=== PATIENT | male | born 1960 | race Caucasian/White ===

== ENCOUNTER 2024-10-16 12:42 | Outpatient (AMB) | payer MEDICARE, MEDICAID, SELFPAY ==
[2024-10-16 12:47] VITALS: BP 140/68; PULSE 63; BMI 29.4
--- NOTE | 2024-10-16 12:47 | MHC.OFFVIS ---
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 The patient reports experiencing chest pain and shortness of breath, which occur primarily when climbing stairs or walking at a fast pace. He describes the chest pain as a tightness and notes that it is sometimes accompanied by dizziness. The symptoms began during an exercise session in the [place], where he was hospitalized and informed of a possible blockage. The patient has not had a stent placed and is seeking treatment in the current location. He mentions that the pain is alleviated by medication, although the specific medication is not detailed in the conversation. [facility] Medical History (Updated 10/16/24 @ 13:11 by Duke Toure MD) Primary hypertension Atherosclerotic cardiovascular disease Family History (Updated 10/16/24 @ 12:59 by Etelvina Milton) Mother Heart problem Father Heart problem Brother H/O heart surgery Social History (Updated 10/16/24 @ 12:59 by Etelvina Milton) Alcohol intake: current Alcohol intake frequency: holidays/special occasions only Patient Tobacco Use Status: Never used Tobacco Review of Systems Const Reports headache(s) and Denies weakness Eyes Reports blurry vision ENT Denies dizziness and Reports headache(s) Card Reports chest pain, Reports chest pain with activity, Denies syncope, Denies rapid heart rate, Denies pedal edema, Denies edema, Denies leg edema, Denies lightheadedness, Denies palpitations, Reports dyspnea, Reports dyspnea on exertion and Denies orthopnea Resp Denies cough, Reports dyspnea and Reports dyspnea on exertion GI Denies hematochezia and Denies change in stool character Musc Denies abnormal gait, Denies muscle cramps, Denies muscle weakness, Denies numbness, Denies radiating pain into limb and Denies tingling Neuro Denies abnormal gait, Denies dizziness, Denies syncope, Reports headache(s), Denies numbness, Denies tingling and Denies weakness Endo Denies palpitations Physical Exam Vital Signs: Last Vital Signs Pulse 63 10/16/24 12:47 BP 140/68 H 10/16/24 12:47 BMI result Body Mass Index 29.4 Const General: comfortable and no acute distress Orientation/consciousness: patient oriented x3 HEENT Other: Unremarkable Head: Yes normal to inspection Neck Neck: Yes normal visual inspection Chest Chest palpation & inspection: normal inspection of the chest Resp Auscultation: clear to auscultation bilaterally Cardio Palpation: normal PMI Heart sounds: S1 normal heart sound present, S2 normal heart sound present, no gallops, no murmurs and no rubs GI Palpation (GI): Soft to palpation Back/Spine/Pelvis Other: unremarkable Skin General skin exam: no rashes or lesions noted Neuro General: patient oriented x3 Extrem General: Yes normal to inspection Psych Mental Status: mental status grossly normal Office Procedures EKG Details: EKG with sinus rhythm at 63/Min; old inferior infarct; cannot exclude old lateral infarct; [place]. [address]-[id number], Complete Assessment & Plan Assessment & Plan (1) Atherosclerotic cardiovascular disease: Code(s): I25.10 - Atherosclerotic heart disease of [place] coronary artery without angina pectoris Category: Medical Plan: Per PCP note, coronary CTA results-performed in the [place]jh-09-92% stenosis in the LAD; < 49% stenosis in the circumflex. We can contact the PCP to get the actual CTA results. He is describing exertional anginal-type symptoms with LAD stenosis as above. Hence we will schedule him for cardiac catheterization and LAD intervention. Next available date is in December but we will try to expedite as much able. We discussed about this today and patient is agreeable. Advised to limit physical activity to avoid anginal symptoms. He is on beta-blockers and there was not much room to increase due to heart rate. We can try adding amlodipine. Continue aspirin and sublingual nitroglycerin as needed. Also obtain echocardiogram for cardiac function and wall motion. (2) Primary hypertension: Code(s): I10 - Essential (primary) hypertension Category: Medical Plan: Add amlodipine 5 mg daily. That should also help with angina. Orders: Orders CA echo transthoracic complete Today I25.10 - Atherosclerotic heart disease of [place] coronary artery without angina pectoris Complete Blood Count no Diff Today I25.10 - Atherosclerotic heart disease of [place] coronary artery without angina pectoris Lipid Panel Today E78.5 - Hyperlipidemia, unspecified, I25.10 - Atherosclerotic heart disease of [place] coronary artery without angina pectoris Prothrombin Time INR Today I25.10 - Atherosclerotic heart disease of [place] coronary artery without angina pectoris Cardiac Cath LT w PCI Today I25.10 - Atherosclerotic heart disease of [place] coronary artery without angina pectoris Comprehensive Met. Panel Today I25.10 - Atherosclerotic heart disease of [place] coronary artery without angina pectoris Medications: New amlodipine 5 mg PO DAILY 90 tabs 3RF I10 - Essential (primary) hypertension Coding Level of Care Code New Pt Level 5 (63018) Complex EM visit Add On G2211 Diagnoses Atherosclerotic cardiovascular disease I25.10 Primary hypertension I10 CPT Codes EKG - CPT: 93212-[id number], Complete ([id number])
--- OUTSIDE RECORDS SUMMARY | 2024-10-16 13:25 | XMS_ITS | Encounter Summary ---
Author Organization [employer] Address [address] [place] [address] Care Team Providers Care Cone Sewer Name Role Phone Leena Solorio MD Primary Care Provider + Encounter Details Date Type Department Care Team (Latest Contact Info) Description 10/14/2024 Travel Social History Tobacco Use Types Packs/Day Years Used Date Smoking Tobacco: Never Smokeless Tobacco: Never Alcohol Use Standard Drinks/Week Comments Yes 0 (1 standard drink = 0.6 oz pur e alcohol) oca Depression Answer Date Recorded Patient Health Questionnaire-9 Score 1 09/10/2024 Patient Health Questionnaire-9 Score 1 09/10/2024 Last PHQ-9: Questionnaire Data Not on file 0 09/10/2024 Housing Stability Answer Date Recorded What is your housing situation today? I have [employer] 09/10/[address] you li ve. Do you have problems with any of the following? None of the above 09/10/2024 Food Insecurity Answer Date Recorded Within the past 12 months, y ou worried that your food would run out before you got money to buy more: Never True 09/10/2024 Within the past 12 months,th e food you bought just didn't last and you didn't have enough money to get more: Never True 11/2024 Transportation Answer Date Recorded In the past 12 months, has l ack of transportation kept you from medical appts, meetings, work or from getting things needed for daily living? No 09/10/2024 Utilities Answer Date Recorded In the past 12 months, has t he electric, gas, oil or water company threatened to shut off services in your home? No 09/10/2024 Depression Answer Date Recorded Patient Health Questionnaire-2 Score 1 09/10/2024 Internet Access Answer Date Recorded Internet Access Q1 No 09/10/2024 Internet Access Q2 I do not want or need it 11/2024 Sex and Gender Information Value Date Recorded Sex Assigned at Male 01/02/2022 10:15 AM EDT Legal Sex Male 10:15 AM EDT Gender Identity Male 01/02/2022 10:15 AM EDT Sexual Orientation Choose not to disclose 2021 10:15 AM EDT documented as of this encounter Plan of Treatment Upcoming Encounters Date Type Department Care Team (Late st Contact Info) Description 11/18/2024 11:45 AM EDT Office Visit [facility] MEDICINE [address] [place] [address] Leena Solorio MD [address] [place] [address] 12/25/2024 1:45 PM EDT Office Visit [facility] OPTOMETRY [address] [place] [address] Elena Ann, OD [address] [place] [address] documented as of this encounter Visit Diagnoses Not on filedocumented in this encounter Additional Health Concerns Assessment Noted Time PHQ-9 Depression Total Score: 1 09/11/19 25 11:21 AM EDT documented as of this encounter Care Teams Cone Sewer Relationship Specialty Start Date End Date Leena Solorio MD [address] [place] [address] PCP - General Internal Medicine 09/10/24 documented as of this encounter
== END 2024-10-16 13:24 | disposition home or self-care (01) ==
LOC: HO.HCS 12:43
PROVIDERS: PCP Internal Medicine; Visit Provider Internal Medicine
DX: I25.10 Atherosclerotic heart disease of native coronary artery without angina pectoris (principal); I10 Essential (primary) hypertension
CPT/HCPCS: 93010; 99204; G2211

== ENCOUNTER → 2024-10-16 12:42 | Outpatient (BNVA) | payer MEDICARE, MEDICAID, SELFPAY | PROVIDERS: PCP Internal Medicine; Visit Provider Internal Medicine | DX: I10 Essential (primary) hypertension (principal); I25.10 Atherosclerotic heart disease of native coronary artery without angina pectoris | CPT/HCPCS: 93005; 99202 ==

== ENCOUNTER → 2024-10-17 12:59 | Outpatient (REF) | payer MEDICARE, MEDICAID, SELFPAY ==
--- OUTSIDE RECORDS SUMMARY | 2024-10-17 13:02 | XMS_ITS | Encounter Summary ---
Author Organization [employer] Address [address] [place] [address] Care Team Providers Care Awning Assembler Name Role Phone Leena Solorio MD Primary [...] Description 11/18/2024 11:45 AM EDT Office Visit [facility] MEDICINE [address] [place] [address] Leena Solorio MD [address] [place] [address] 12/25/2024 1:45 PM EDT Office Visit [facility] OPTOMETRY [address] [place] [address] Elena Ann, OD [address] [place] [address] documented as of this encounter Visit Diagnoses Not on filedocumented in this encounter Additional Health Concerns Assessment Noted Time PHQ-9 Depression Total Score: 1 09/11/19 25 11:21 AM EDT documented as of this encounter Care Teams Awning Assembler Relationship Specialty Start Date End Date Leena Solorio MD [address] [place] [address] PCP - General Internal Medicine 09/10/24 documented as of this encounter
--- NOTE | 2024-10-17 13:04 | CA_ITS ---
Transthoracic Echocardiogram Patient (Last, First, Middle): Mat Pozo, Gender: Male Date of : 1960 Age: 64 Procedure Date: 10/17/2024 Procedure Type: Transthoracic Echocardiogram Location: OP Height: 157.48 cm Weight: 74.84 kg BSA: 1.76 m2 Heart Rate: bpm BP: 138 / 90 mmHg Jewelry Sales Associate: TO Referring MD: Duke Toure MD Symptoms: I25.10 - Atherosclerotic heart disease of [place] coronary artery without... Study Quality: Adequate Conclusions: - Normal left ventricular size, thickness, systolic function, and wall motion. The visually estimated ejection fraction is between 55-60%. Diastolic function is normal for age. - Mildly increased right ventricular cavity size. There is normal right ventricular systolic function. - The left atrium is normal in size. The right atrium is normal in size. - There is mild dilatation of the ascending aorta measuring 4.10 cm. Findings Left Ventricle Normal left ventricular size, thickness, systolic function, and wall motion. The visually estimated ejection fraction is between 55-60%. Diastolic function is normal for age. Right Ventricle Mildly increased right ventricular cavity size. There is normal right ventricular systolic function. Atria The left atrium is normal in size. The right atrium is normal in size. Aortic Valve Normal aortic valve structure and function. There is no aortic valve stenosis. There is no aortic valve regurgitation. Mitral Valve The mitral valve appears normal. There is no mitral valve regurgitation. There is no mitral valve stenosis. Pulmonic Valve The pulmonic valve is likely normal. Tricuspid Valve Normal tricuspid valve structure. There is trace tricuspid valve regurgitation. Normal right atrial pressure. There is no evidence of pulmonary hypertension. Great Vessels There is mild dilatation of the ascending aorta measuring 4.10 cm. The visualized portions of the pulmonary artery and branches are normal. Venous The inferior vena cava is normal in size and collapses greater than 50% with inspiration. Pericardium/Pleural There is no evidence of pericardial effusion. Prior Study Comparison No prior study available for comparison. Measurements 2D Linear Measurements IVSd: 1.02 0.6-0.9/0.6-1.0 cm LVIDd: 4.49 3.9-5.3/4.2-5.9 cm LVIDd Index: 2.55 2.4-3.2/2.2-3.1 cm/m2 LVIDs: 2.76 2.0-3.6 cm LVPWd: 0.90 0.7-1.1 cm LA Diam: 3.70 2.7-3.8/3.0-4.0 cm LAIDs Index: 2.10 1.5-2.3 cm/m2 LV Mass: 179.77 67-162/88-224 g LV Mass Index: 102.14 43-95/49-115 g/m2 LVOT Diam: 2.20 3.0+(-)1.3 cm 2D Systolic Function EF 4C: 60.40 >55% EF 2C: 59.30 >55% EF BiP: 59.90 >55% Mitral Valve MV Pk E: 0.69 MV PK A: 0.55 MV Decel Time: 226.00 E/A: 1.30 E'Lateral: 7.72 E'Medial: 5.44 E/E' Med: 12.80 E/E' Lat: 9.00 PHT: 66.00 MVA PHT: 3.33 Decel [place]: 3.07 Aortic Valve AoV Pk Nuno: 1.21 AoV Mn Nuno: 0.76 AoV VTI: 0.26 AoV Pk Grad: 6.00 Aov Mn Grad: 3.00 ASTRID Cont.VTI: 3.23 LVOT LVOT Pk Nuno: 0.95 LVOT Mn Nuno: 0.65 LVOT VTI: 0.22 LVOT Pk Grad: 4.00 LVOT Mn Grad: 2.00 LVOT Diam: 2.20 LVOT Area: 3.80 Diastolic Function MV Pk E: 0.69 MV Pk A: 0.55 E/A: 1.30 E'Medial: 5.44 E/E' Med: 12.80 E' Laterial: 7.72 E/E' Lat: 9.00 Right Ventricle TAPSE (mm): 24.90 TVS' Nuno: 11.50 Tricuspid Valve TR Pk Nuno: 2.14 TR Pk Grad: 18.00 RA Press: 3.00 RVSP: 21.00 Great Vessels Aorta Sinus of Valsalva: 3.52 2.0-3.5 cm Ao Asc: 4.10 2.1-3.4 cm Pulmonary Veins Pulm Vein S/D 1.20 Updated in Other Vendor System with Status of Final Bryan Rodriguez MD electronically signed on 10/19/2024 1:28:42 PM with status of Final
== END ==
LOC: HO.CARD 12:59
PROVIDERS: PCP Internal Medicine; Visit Provider Internal Medicine
DX: I25.10 Atherosclerotic heart disease of native coronary artery without angina pectoris (principal)
CPT/HCPCS: 93306

== ENCOUNTER → 2024-10-17 13:04 | Outpatient (BNV) | payer MEDICARE, MEDICAID, SELFPAY | PROVIDERS: PCP Internal Medicine; Visit Provider Internal Medicine Cardiovascular Disease | DX: I25.10 Atherosclerotic heart disease of native coronary artery without angina pectoris (principal); I77.810 Thoracic aortic ectasia | CPT/HCPCS: 93306 ==

== ENCOUNTER 2024-10-27 15:41 | Outpatient (REF) | payer MEDICARE, MEDICAID, SELFPAY ==
[2024-10-27 16:20] LABS: Hematocrit 42.5 % (42.0-52.0); Hemoglobin 14.2 g/dl (14.0-18.0); Mean Corpuscular HGB Conc 33.4 g/dl (31.0-36.0); Mean Corpuscular Hemoglobin 28.2 pg (27.0-33.0); Mean Corpuscular Volume 84.5 fL (80.0-98.0); NRBC Abs Auto 0.000 X10*3/uL (0.0-0.012); NRBC Pct Auto 0.0 /100WBC (0.0-0.2); Platelet Count 172 X10*3/uL (160-400); Red Blood Count 5.03 X10*6/uL (4.60-5.80); White Blood Count 4.3 X10*3/uL (4.8-10.8)
[2024-10-27 16:27] LABS: INTERNATIONAL NORM RATIO 1.1 (0.9-1.1); Prothrombin Time 12.3 SEC (10.9-12.4)
[2024-10-27 16:46] LABS: Alanine Aminotransferase 50 U/L (0-40); Albumin Level 4.7 g/dL (3.5-5.0); Alkaline Phosphatase 78 U/L (39-117); Anion Gap 10 (12-20); Aspartate Amino Transferase 30 U/L (5-37); Blood Urea Nitrogen 12 mg/dL (9-16); Calcium 9.4 mg/dL (8.4-10.2); Carbon Dioxide 29 mmol/L (22-29); Chloride 106 mmol/L (96-108); Cholesterol 167 mg/dL (<200); Estimated Glomerular Filt Rate > 60; HDL Cholesterol 34 mg/dL (>40); Potassium 4.4 mmol/L (3.3-5.1); Sodium 141 mmol/L (135-145); Total Protein 7.2 g/dL (6.5-8.0); Triglycerides 166 mg/dL (<150)
--- OUTSIDE RECORDS SUMMARY | 2024-10-27 17:43 | XMS_ITS | Clinical Summary ---
Author Organization [employer] Address [address] [place] [address] Care Team Providers Care Timber Sizer Operator Name Role Phone Leena Solorio MD Primary Care Provider + Allergies No known active allergies Medications atorvastatin (Lipitor) 40 MG tablet Take 1 tablet (40 mg) by mouth at bedtime. 30 tablet 5 09/11/19 Active aspirin 81 MG EC tablet Take 1 tablet (81 mg) by mouth Once per day. 30 tablet 5 09/11/19 26 Active nitroglycerin (Nitrostat) 0.[address] 1 tablet (0.4 mg) under the tongue every 5 (five) minutes if needed for chest pain (Repeat 1 if chest pain is not completely resolved within 5 minutes, call 911). 90 tablet 5 09/11/19 Active Blood Pressure Monitoring (Blood Pressure Cuff) [facility] Use daily as prescribed 1 each 5 Active metoprolol succinate XL (Toprol-XL) 50 MG 24 hr tabletIndications :Primary hypertension Take 1 tablet (50 mg) by mouth Once per day. Do not crush or chew. 30 tablet 5 09/25/19 26 Active lisinopril 10 MG tabletIndications :Primary hypertension Take 1 tablet (10 mg) by mouth Once per day. 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 I ordered ASA and Nitrostat STAT as he was showing symptoms of angina, most likely due to not taking medications medications. Chest pain resolved within less than 5 minutes, patient developed mild headache that he understood was related to side effect of nitroglycerin. He was discharged home and I discussed with him the importance of taking medications as prescribed. He agreed with POC Will refer to cardiology to be seen LEYDI. Discussed with patient regarding tight control of hypertension, start lisinopril and metoprolol. Rx aspirin and atorvastatin + SL NTG as needed chest pain, if chest pain is not resolved within 5 minutes, needs to take a second 1 and go to ED. Advised importance of avoiding alcohol, smoking and any recreational substances Follow-up with me in 4 weeks Decreased vision in both eyes 09/10/2024 Encounters Date Type Department Care Team Description 10/14/2024 1:00 PM EDT Clinical Support [facility] MEDICINE [address] [place] [address] Primary hypertension 10/14/2024 Travel 09/24/2024 11:00 AM EDT Clinical Support [facility] [address] [place], [place] [address] Millie Nowak, ELIZABETH Primary hypertension 09/24/2024 Refill [facility] [address] [place], [place] [address] Millie Nowak, ELIZABETH Primary hypertension 09/24/2024 Travel 09/10/2024 9:30 AM EDT Office Visit [facility] [address] [place] [address] Leena Solorio MD Coronary artery disease of [place] artery of [place] heart with stable angina pectoris (CMS/HCC) (Primary Dx); Primary hypertension; Decreased vision in both eyes 09/10/2024 Travel 09/08/2024 Telephone [facility] [address] [place] [address] Leena Solorio MD Chart Prep 09/02/2024 Patient Outreach [facility] [address] [place] [address] Leena Solorio MD Pre-visit Planning ((Unable to reach for PVP screening and or LVM) to be completed in office) from Last 3 Months Social History Tobacco Use Types Packs/Day Years Used Date Smoking Tobacco: Never Smokeless Tobacco: Never Tobacco Cessation:Counseling Given: Not Answered Alcohol Use Standard Drinks/Week Comments Yes 0 [...] not to disclose 2021 10:15 AM EDT Last Filed Vital Signs Vital Sign Reading Time Taken Comments Blood Pressure 142/86 10/14/2024 1:33 PM EDT Pulse 88 10/14/2024 1:33 PM EDT Temperature 36.2 C (97.1 F) 09/10/2024 9:33 AM EDT Respiratory Rate 18 10/14/2024 1:33 PM EDT Oxygen Saturation 96% 10/14/2024 1:33 PM EDT Inhaled Oxygen Concentration - - Weight 76.4 kg (168 lb 6 oz) 09/10/2024 9:33 AM EDT Height 162.6 cm (5' 4 ) 09/10/2024 9:33 AM EDT Body Mass Index 28.9 09/10/2024 9:33 AM EDT Plan of Treatment Upcoming Encounters Date Type Department Care Team (Late st Contact Info) Description 11/18/2024 11:45 AM EDT Office Visit [facility] [address] [place] [address] Leena Solorio MD [address] [place] [address] 12/25/2024 1:45 PM EDT Office Visit [facility] OPTOMETRY [address] [place] [address] Elena Ann, OD [address] [place] [address] Health Maintenance Due Date Last Done Comments CT Colonography 1960 Colonoscopy 1960 Colorectal Cancer Screening 1960 FIT DNA/Cologuard 1960 FIT 1960 FOBT 1960 HIV Screening 1960 Sigmoidoscopy 1960 Hepatitis C Screening 1980 DTaP/Tdap/Td Vaccines (1 - Tdap) 1981 Pneumococcal Vaccine: 50+ Years (1 of 2 - PCV) 1981 Zoster Vaccines (1 of 2) 2012 RSV Patients and Patients Aged 60 years or older (1 - Risk 60-74 years 1-dose series) 2022 COVID-19 Vaccine (1 - 2023-2 5 season) 2023 Influenza Vaccine (#1) 2024 Alcohol/Substance Use Screening 09/10/2025 09/10/2024 Depression Screening 09/10/2025 09/10/2024, 09/10/2024 Disability Screening 09/10/2025 09/10/2024 SDOH Screening 09/10/2025 09/10/2024 Tobacco Screening 09/10/2025 09/10/2024 Lipid Panel 08/24/2026 08/24/2021 HIB Vaccines Aged Out No longer eligi ble based on patient's age to complete this topic HPV Vaccines Aged Out No longer eligi ble based on patient's age to complete this topic Hepatitis A Vaccines Aged Out No long er eligible based on patient's age to complete this topic Hepatitis B Vaccines Aged Out No long er eligible based on patient's age to complete this topic IPV Vaccines Aged Out No longer eligi ble based on patient's age to complete this topic Meningococcal B Vaccine Aged Out No l onger eligible based on patient's age to complete this topic Meningococcal Vaccine Aged Out No [place] eligible based on patient's age to complete this topic RSV under 20 months Aged Out No longe r eligible based on patient's age to complete this topic Rotavirus Vaccines Aged Out No longer eligible based on patient's age to complete this topic Procedures Procedure Name Priority Date/Time Associated Diagnosis Comments ECG 12-LEAD Routine 09/10/2024 3:25 PM EDT Primary hypertension Coronary artery disease of [place] artery of [place] heart with stable angina pectoris (CMS/HCC) LIPID PANEL, STANDARD Routine 08/24/2021 11:42 AM EDT from Last 3 Months or Most Recently Relevant to Health Maintenance Results * ECG 12 lead (09/10/2024 3:25 PM EDT) Narrative Leena Solorio MD - 09/10/2024 3:25 PM EDT NSR at 68 bpm, normal axis. Nonspecific repolarization abnormalities. Inverted T waves on inferior leads, no EKG to compare us Leena Solorio MD ECG ORDERABLES Final Re sult * (ABNORMAL) LIPID PANEL, STANDARD (08/24/2021 11:42 AM EDT) Chol/HDLC Ratio 4.3 <5.0 (calc) [facility] Cholesterol, Total 178 <200 mg/dL [facility] HDL Cholesterol 41 > OR = 40 mg/dL [facility] LDL Cholesterol 110(H) mg/dL (calc) [facility] Comment: Reference range: <100 Desirable range <100 mg/dL for primary prevention; <70 mg/dL for patients with CHD or diabetic patients with > or = 2 CHD risk factors. LDL-C is now calculated using the Nasir calculation, which is a validated novel method providing better accuracy than the Friedewald equation in the estimation of LDL-C. North SS et al. GLO. 2013;310(19): 4907-3666 (http://education.[employer]/faq/HRE864) Non-HDL Cholesterol 137(H) <130 mg/dL (calc) [facility] Comment: For patients with diabetes plus 1 major ASCVD risk factor, treating to a non-HDL-C goal of <100 mg/dL (LDL-C of <70 mg/dL) is considered a therapeutic option. Triglycerides 154(H) <150 mg/dL [facility] 08/24/2021 11:4 2 AM EDT us [place] [facility] BLOOD ORDERABLES Final Result [facility] [address] from Last 3 Months or Most Recently Relevant to Health Maintenance Insurance [facility] STANDARD MEDICARE Care Teams Timber Sizer Operator Relationship Specialty Start Date End Date Leena Solorio MD [address] [place] [id number] PCP - General Internal Medicine 09/10/24
== END 2024-10-27 15:42 | disposition home or self-care (01) ==
LOC: HO.LAB 15:41
PROVIDERS: PCP Internal Medicine; Visit Provider Internal Medicine
DX: I10 Essential (primary) hypertension (principal); I25.10 Atherosclerotic heart disease of native coronary artery without angina pectoris; E78.5 Hyperlipidemia, unspecified
CPT/HCPCS: 36415; 80053; 80061; 85027; 85610

== ENCOUNTER → 2024-10-28 23:59 | Outpatient (BNV) | payer MEDICARE, MEDICAID, SELFPAY | PROVIDERS: PCP Internal Medicine; Visit Provider Internal Medicine Cardiovascular Disease | DX: I20.89 Other forms of angina pectoris (principal) | CPT/HCPCS: 93458; 99152 ==

== ENCOUNTER 2024-11-11 09:22 | Outpatient (AMB) | payer MEDICARE, MEDICAID, SELFPAY ==
[2024-11-11 09:24] VITALS: BP 138/80; PULSE 60; BMI 29.9
--- NOTE | 2024-11-11 09:24 | MHC.OFFVIS ---
Vital Signs 11/11/24 09:24 Height 5 ft 2 in Weight 163 lb 9.328 oz BMI 29.9 BP 138/80 Blood Pressure Location Lt brachial Position Sitting Pulse 60 Pulse Source Pulse Oximeter Intake Visit Reasons: 2wk f/up cath Insulation Nozzleman Required: Yes Insulation Nozzleman Language: [employer] Manager Name: voice renteria [id number] Allergies No Known Allergies Allergy (Verified 11/11/24 09:26) Medication List - Last Reconciled 11/11/24 by NASRA Zapata amlodipine 5 mg PO DAILY aspirin 81 mg PO DAILY atorvastatin (Lipitor) 40 mg PO DAILY nitroglycerin 0.4 mg sublingual Q5M PRN HPI HPI 2wk f/up cath: Details: Mat he is a 64-year-old male past medical history of hypertension and reported CTA of the coronary arteries done in the [facility] [place] with moderate LAD and mild left circumflex stenosis. On last visit he reported anginal sounding symptoms and underwent cardiac catheterization which showed no significant coronary artery disease. He now presents for follow-up. Today he reports that he is feeling well overall. He denies chest discomfort at rest or during activity. His prior symptom has since resolved. He has no shortness of breath, PND, orthopnea or edema. He does have an intermittent cough mostly in the night. He denies heart palpitations, lightheadedness, presyncope, syncope. He is asking about taking a medication for erectile dysfunction. He stopped taking his metoprolol, amlodipine and lisinopril after the cardiac catheterization. He does continue to take aspirin and atorvastatin. His right radial catheterization site is feeling good. [facility] Medical History (Updated 11/11/24 @ 11:20 by NASRA Zapata) Primary hypertension Atherosclerotic cardiovascular disease Family History (Updated 10/16/24 @ 12:59 by Etelvina Milton) Mother Heart problem Father Heart problem Brother H/O heart surgery Social History (Updated 10/16/24 @ 12:59 by Etelvina Milton) Alcohol intake: current Alcohol intake frequency: holidays/special occasions only Patient Tobacco Use Status: Never used Tobacco Review of Systems Const All systems reviewed & are unremarkable except as noted in HPI and below ENT Denies dizziness Card Denies chest pain, Denies chest pain at rest, Denies chest pain with activity, Denies rapid heart rate, Denies pedal edema, Denies edema, Denies leg edema, Denies lightheadedness, Denies palpitations, Denies dyspnea, Denies dyspnea on exertion and Denies orthopnea Resp Denies cough, Denies dyspnea and Denies dyspnea on exertion GI Denies hematochezia and Denies change in stool character Musc Denies abnormal gait, Denies limited range of motion, Denies muscle cramps, Denies muscle weakness, Denies numbness, Denies radiating pain into limb, Denies stiffness and Denies tingling Neuro Denies abnormal gait, Denies dizziness, Denies numbness and Denies tingling Endo Denies palpitations Physical Exam Vital Signs: Last Vital Signs Pulse 60 11/11/24 09:24 BP 138/80 11/11/24 09:24 BMI result Body Mass Index 29.9 Const General: cooperative, healthy appearing, comfortable and no acute distress Orientation/consciousness: patient oriented x3 Neck Neck: Yes normal visual inspection Resp Effort & Inspection: normal respiratory effort Auscultation: clear to auscultation bilaterally, no crackles, no rales, no rhonchi and no wheezes Cardio Rate: regular rate Rhythm: regular rhythm Heart sounds: S1 normal heart sound present, S2 normal heart sound present, no gallops, no murmurs and no rubs Neuro General: patient oriented x3 Extrem Other: Right radial catheterization site with easily palpable radial pulse, right hand assessment normal. General: Yes normal to inspection Psych Appearance: grossly normal Mental Status: mental status grossly normal Speech and movement: Normal speech and movement present Assessment & Plan Assessment & Plan (1) Atherosclerotic cardiovascular disease: Code(s): I25.10 - Atherosclerotic heart disease of [place] coronary artery without angina pectoris Category: Medical Plan: Patient reportedly had CTA of the coronaries done in the [place] showing moderate LAD and mild left circumflex stenosis. Concern for angina last visit. An echocardiogram was done 10/17/2024 showing EF 55-60%, mild dilated ascending aorta 4.1 cm. A cardiac catheterization was done 10/28/2024 showing no significant coronary artery disease. He tells me he stopped metoprolol, amlodipine, lisinopril following that procedure as he believed his heart was fine. He is on aspirin however with no finding of coronary disease aspirin is not indicated for cardiac reasons. He tells me he has had elevated cholesterol and remains on atorvastatin which can be followed by his PCP. He is no longer having chest discomfort. If he does have recurrent symptoms then it is most likely noncardiac. (2) S/P cardiac catheterization: Comment: 10/28/2024, no significant coronary artery disease, lad minimal luminal irregularities, RCA minimal luminal irregularities, left main and left circumflex normal Code(s): Z98.890 - Other specified postprocedural states Category: Surgical Plan: Right radial catheterization site well healed (3) Primary hypertension: Code(s): I10 - Essential (primary) hypertension Category: Medical Plan: Blood pressure goal less than 130/80. Initially 138/80 however recheck done by me today 148/100. He stopped amlodipine, metoprolol, lisinopril. He is reporting a intermittent cough and is requesting medication for treatment of erectile dysfunction. Will avoid the restart of lisinopril and metoprolol for these reasons. Will restart low-dose amlodipine to help with hypertension. (4) Mild ascending aorta dilatation: Code(s): I77.810 - Thoracic aortic ectasia Category: Medical Plan: Echocardiogram showing mildly dilated ascending aorta 4.1 cm. Will restart amlodipine for good blood pressure control. Will plan repeat echo in 1 year prior to next visit. Plan I discussed with the patient that the cardiac catheterization showed no significant coronary artery disease, and the chest discomfort was not cardiac-related. We talked about restarting antihypertensive medication, excluding lisinopril due to the cough. He reports having issues with erectile dysfunction. Will hold off on restart of metoprolol. Will add the amlodipine for his elevated blood pressure. I advised a follow-up in one year with an echocardiogram planned before the visit. Orders: Orders CA echo transthoracic complete 1 Year I77.810 - Thoracic aortic ectasia Medications: Refilled amlodipine 5 mg PO DAILY 90 tabs 3RF I10 - Essential (primary) hypertension Patient Instructions: - Restart Amlodipine blood pressure control - discussed need for erectile dysfunction medication with PCP. - Follow up in one year with an echocardiogram before the visit. Patient was informed and verbally consented to the use of an ambient scribe for clinic note documentation during this visit. Visit time spent on chart review, interview, assessment, orders, documentation. Coding Level of Care Code Est Pt Level 4 (32229) Complex EM visit Add On G2211 Diagnoses Atherosclerotic cardiovascular disease I25.10 S/P cardiac catheterization Z98.890 Primary hypertension I10 Mild ascending aorta dilatation I77.810 Time Spent (min) 28
== END 2024-11-11 09:50 | disposition home or self-care (01) ==
LOC: HO.HCS 09:23
PROVIDERS: PCP Internal Medicine; Visit Provider Nurse Practitioner Family
DX: I25.10 Atherosclerotic heart disease of native coronary artery without angina pectoris (principal); Z98.890 Other specified postprocedural states; I10 Essential (primary) hypertension; I77.810 Thoracic aortic ectasia
CPT/HCPCS: 99214; G2211

== ENCOUNTER → 2024-11-11 09:22 | Outpatient (BNVA) | payer MEDICARE, MEDICAID, SELFPAY | PROVIDERS: PCP Internal Medicine; Visit Provider Nurse Practitioner Family | DX: I25.10 Atherosclerotic heart disease of native coronary artery without angina pectoris (principal); Z98.890 Other specified postprocedural states; Z79.82 Long term (current) use of aspirin; I10 Essential (primary) hypertension; I77.810 Thoracic aortic ectasia; R05.9 Cough, unspecified | CPT/HCPCS: 99212 ==